=== PATIENT | female | born 1950 | race Caucasian/White ===

== ENCOUNTER 2022-09-16 18:35 | Emergency (ER) | payer OTHER, MEDICARE, SELFPAY ==
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
[2022-09-16 18:35] VITALS: PULSE 86; RESP 16; TEMP 36.8; O2SAT 98
[2022-09-16 19:00] VITALS: BP 136/84; PULSE 87; RESP 16; O2SAT 96
--- NOTE | 2022-09-16 19:16 | ECG_ITS ---
Measurements Intervals [place] Rate: 84 P: 76 [place]: 178 QRS: 67 QRSD: 87 T: 89 QT: 375 QTc: 445 Interpretive Statements SINUS RHYTHM LOW QRS VOLTAGE IN PRECORDIAL LEADS BORDERLINE T WAVE ABNORMALITY- HIGH LATERAL LEADS BASELINE ARTIFACT- II, III, AVF, V4 BORDERLINE ECG NO PREVIOUS ECG AVAILABLE FOR COMPARISON Electronically Signed On 09-17-2022 6:45:52 CDT by Darren Blakely D.O.
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
[2022-09-16] MEDS: MORPHINE SULFATE (*CRX) 4 MG/ML INJ IV PUSH ×2 (19:38→21:35)
[2022-09-16] MEDS: ONDANSETRON INJ 4 MG/2 ML VIAL IV PUSH (19:38)
[2022-09-16] MEDS: SODIUM CHLORIDE 0.9% IV 1,000 ML 999 ML IV CONT (19:39)
[2022-09-16 19:42] LABS: Basophils Absolute Auto 0.1 K/mm3 (0.0-0.1); Basophils Percent Auto 0.5 % (0.2-1.2); Eosinophils Absolute Auto 0.2 K/mm3 (0-0.3); Eosinophils Percent Auto 1.1 % (0-4.4); Hematocrit 36.4 % (37.0-47.0); Hemoglobin 12.1 g/dL (12.0-15.0); Immature Granulocyte Absolute 0.18 K/mm3 (0.00-0.031); Immature Granulocyte Percent A 1.3 % (0-0.5); Lymphocytes Absolute Auto 0.56 K/mm3 (0.9-3.2); Mean Corpuscular HGB Conc 33.2 g/dl (32-36); Mean Corpuscular Hemoglobin 28.7 pg (26-34); Mean Corpuscular Volume 86.5 fl (80-100); Mean Platelet Volume 9.1 fl (7.4-10.4); Monocytes Absolute Auto 0.9 K/mm3 (0.1-0.6); Monocytes Percent Auto 6.3 % (2.6-8.5); Neutrophils Percent Auto 86.8 % (45.5-73.1); Platelet Count Result 283 k/mm3 (150-375); Red Blood Count 4.21 M/mm3 (4.2-5.4); Red Cell Distribution Width 12.9 % (11.5-14.5); White Blood Count 13.8 K/mm3 (4.5-10.0)
[2022-09-16 19:51] LABS: Alanine Aminotransferase 27 U/L (6-35); Albumin Level 4.1 g/dL (3.5-5.1); Alkaline Phosphatase 126 U/L (38-126); Anion Gap 9 mmol/L (8-16); Aspartate Amino Transferase 40 U/L (14-36); Bilirubin,Total 0.6 mg/dL (0.2-1.3); Blood Urea Nitrogen 20 mg/dL (7-17); Calcium 7.6 mg/dL (8.4-10.2); Carbon Dioxide 26 mmol/L (22-30); Chloride 99 mmol/L (98-107); Estimated CRCL calculation 37 ml/min; Estimated Glomerular Filt Rate 40; Glucose 113 mg/dL (65-110); Potassium 3.3 mmol/L (3.4-5.0); Sodium 134 mmol/L (137-145)
[2022-09-16 19:53] LABS: INR 1.1; Prothrombin Time 14.6 Seconds (11.1-14.7)
[2022-09-16 19:54] LABS: Partial Thromboplastin Time 28.6 SECONDS (22.3-36.8)
[2022-09-16 20:03] LABS: Troponin I < 0.012 ng/mL (0.000-0.034)
[2022-09-16 20:30] VITALS: O2SAT 97
[2022-09-16 21:14] VITALS: BP 129/76; PULSE 85; RESP 17; O2SAT 96
[2022-09-16 22:30] VITALS: BP 136/68; PULSE 87; RESP 16; O2SAT 100
== END 2022-09-16 22:45 | disposition short-term general hospital (02) ==
PROVIDERS: Emergency Provider Physician Assistant
DX: S32.040A Wedge compression fracture of fourth lumbar vertebra, initial encounter for closed fracture (principal); S22.43XA Multiple fractures of ribs, bilateral, initial encounter for closed fracture; S32.392A Other fracture of left ilium, initial encounter for closed fracture; S09.90XA Unspecified injury of head, initial encounter; S41.112A Laceration without foreign body of left upper arm, initial encounter; S41.111A Laceration without foreign body of right upper arm, initial encounter; J98.4 Other disorders of lung; R91.1 Solitary pulmonary nodule; R94.31 Abnormal electrocardiogram [ECG] [EKG]; E78.5 Hyperlipidemia, unspecified; I10 Essential (primary) hypertension; V47.0XXA Car driver injured in collision with fixed or stationary object in nontraffic accident, initial encounter
CPT/HCPCS: 36415; 70450; 70486; 71260; 72125; 72129; 72132; 73060; 73090; 73552; 74177; 80053; 84484; 85025; 85610; 85730; 93005; 96361; 96374; 96375; 96376; 99285; J2270; J2405; J7030; Q9967

== ENCOUNTER 2022-10-18 12:30 | Outpatient (RCR) | payer MEDICARE, SELFPAY ==
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
== END 2022-10-25 10:04 | disposition home or self-care (01) ==
LOC: ANHGOSHPT 12:30
DX: S32.040D Wedge compression fracture of fourth lumbar vertebra, subsequent encounter for fracture with routine healing (principal); S32.302D Unspecified fracture of left ilium, subsequent encounter for fracture with routine healing; S32.050D Wedge compression fracture of fifth lumbar vertebra, subsequent encounter for fracture with routine healing; S22.43XD Multiple fractures of ribs, bilateral, subsequent encounter for fracture with routine healing; S46.019D Strain of muscle(s) and tendon(s) of the rotator cuff of unspecified shoulder, subsequent encounter; S62.636D Displaced fracture of distal phalanx of right little finger, subsequent encounter for fracture with routine healing; M81.0 Age-related osteoporosis without current pathological fracture; R26.81 Unsteadiness on feet; V89.2XXD Person injured in unspecified motor-vehicle accident, traffic, subsequent encounter
CPT/HCPCS: 97110; 97161; 97165; 97530